=== PATIENT | male | born 1985 | race Caucasian/White ===

== ENCOUNTER 2020-03-04 18:07 | Emergency (ER) | payer OTHER, MEDICAID ==
[~2020-03-04] VITALS: Ht 195.6 cm; Wt 95.3 kg
[~2020-03-04 18:07] MED LIST: NORPTMEDS CO
[2020-03-04] MEDS ORDERED: SODIUM CHLORIDE 0.9% 1,000 ML IVB ONE (18:43)
[2020-03-04] MEDS ORDERED: DONNATAL 5ml ORAL Elix (BELLADONNA ALK-PHENOBARB) PO ONE (18:45)
[2020-03-04] MEDS ORDERED: ALUM & MAG HYDROX-SIMETH LIQ(MAALOX) 30 ML PO ONE (18:45)
[2020-03-04] MEDS ORDERED: FAMOTIDINE 20 MG TAB PO ONE (18:45)
[2020-03-04] MEDS ORDERED: FOLIC ACID 1 MG, MULTIPLE VITAMIN 10 ML, MAGNESIUM SULF SDV 50% 8 MEQ, THIAMINE INJ 100... INJ ONE ×5 (19:00)
[2020-03-04] MEDS ORDERED: SODIUM CHLORIDE 0.9% 1,000 ML IV ONE (19:15)
[2020-03-04 20:00] VITALS: BP 102/57
[2020-03-05] MEDS ORDERED: FOLIC ACID 1 MG, MULTIPLE VITAMIN 10 ML, MAGNESIUM SULF SDV 50% 8 MEQ, THIAMINE INJ 100... INJ SCH ×5 (12:00)
== END 2020-03-04 21:30 | disposition home or self-care (01) ==
LOC: EDUNIT# 18:07 → EDBD 18:07 → ER 18:07
DX: F10.129 Alcohol abuse with intoxication, unspecified (principal); R51 Headache; F17.210 Nicotine dependence, cigarettes, uncomplicated; F12.10 Cannabis abuse, uncomplicated; F15.10 Other stimulant abuse, uncomplicated; F14.20 Cocaine dependence, uncomplicated; Y90.0 Blood alcohol level of less than 20 mg/100 ml; V47.5XXA Car driver injured in collision with fixed or stationary object in traffic accident, initial encounter; Y93.89 Activity, other specified; Y92.89 Other specified places as the place of occurrence of the external cause; Y99.8 Other external cause status
CPT/HCPCS: 93005; 96365; 99284; J3411; J3475; J7030